=== PATIENT | male | born 2000 | race Caucasian/White ===

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

== ENCOUNTER 2022-09-10 11:03 | Emergency (ER) | payer BC, MEDICAID ==
[~2022-09-10] VITALS: Ht 185.5 cm; Wt 100.0 kg
[~2022-09-10 11:03] MED LIST changes: +PRD20T PO
--- NOTE | 2022-09-10 11:31 | ED General ---
General Chief Complaint: Dizziness/Syncope Stated Complaint: FALL | HEAD INJ | LIGHTHEADED | Nursing Triage Note: PT AMB TO ED BY POV WITH C/O SYNCOPE. PT REPORTS AROUND 0930 HE HAD A BM WHILE AT WORK, NOTICED A SMALL AMOUNT OF BRIGHT RED BLOOD ON STOOL AND TOILET PAPER. AFTER BM, PT BECAME DIZZY, DIAPHORETIC, LOST CONCIOUSNESS AND HIT HEAD WITNESSED BY COWORKERS. DENIES PAIN OR DIZZINESS AT THIS TIME. PT A&OX4. Source of Information: Patient Exam Limitations: No Limitations History of Present Illness Date Seen by Provider: Sep 10, 2022 Time Seen by Provider: 11:06 Initial Comments 22yoM with no pertinent PMH coming in after a syncopal episode and hitting his head. Had a bowel movement that had a small amount of blood streaking on the outside. He got lightheaded, stood up, and passed out. Denied chest pain, pal pitations, or any concerns prior to this. Has a mild headache at this time. Denies any history of GI bleed. Of note, he states he does get queasy and lightheaded when he sees blood which this is what occurred earlier. Allergies and Home Medications Allergies Coded Allergies: No Known Drug Allergies (Unverified , 11/25/15) Patient Home Medication List Home Medication List Reviewed: Yes Hydrocodone Bit/Acetaminophen (Lortab 5 Mg Tablet) 1 Each Tablet, 1 EACH PO Q4H Prescribed by: ARTI URIBE on 05/11/17 0004 Prednisone (Prednisone) 20 Mg Tab, 40 MG PO DAILY Prescribed by: MARY ASHER on 05/04/183 Review of Systems Review of Systems Constitutional: No fever EENTM: no symptoms reported Respiratory: no symptoms reported Cardiovascular: see HPI Gastrointestinal: see HPI Genitourinary: no symptoms reported Musculoskeletal: no symptoms reported Skin: no symptoms reported Psychiatric/Neurological: See HPI Hematologic/Lymphatic: No Symptoms Reported Past Awwsjnr-Kgdikq-Tfgttq Hx Patient Social History Tobacco Use?: No Use of E-Cig and/or Vaping dev: Yes E-Cig or Vaping type used: Nicotine Use of E-Cig and/or Vaping Esdras: Current Everyday User Substance use?: Yes Substance type: Marijuana Substance frequency: Daily Alcohol Use?: Yes Alcohol Frequency: Once in a while Pt feels they are or have been: No Immunizations Up To Date Influenza Vaccine Up-to-Date: No; Not Current Seasonal Allergies Seasonal Allergies: Yes Past Medical History Surgery/Hospitalization HX: DENIES Surgeries: No Respiratory: No Cardiac: No Neurological: No Reproductive Disorders: No Sexually Transmitted Disease: No Genitourinary: No Gastrointestinal: No Musculoskeletal: No Endocrine: No HEENT: No Cancer: No Psychosocial: No Integumentary: No Blood Disorders: No Physical Exam Vital Signs Vital Signs - First Documented 09/10/22 11:19 Pulse 86 Resp 16 B/P (MAP) 165/90 (115) Pulse Ox 98 O2 Delivery Room Air Capillary Refill : Less Than 3 Seconds Height, Weight, BMI Height: 6'1.00" Weight: 205lbs. oz. 92.338194ff; 29.00 BMI Method:Stated General Appearance: No Apparent Distress, WD/WN Eyes: Bilateral Eye Normal Inspection HEENT: PERRL/EOMI, Normal ENT Inspection, Pharynx Normal Neck: Full Range of Motion, Normal Inspection, Non Tender, Supple Respiratory: Chest Non Tender, Lungs Clear, Normal Breath Sounds, No Accessory Muscle Use, No Respiratory Distress Cardiovascular: Regular Rate, Rhythm, No Edema, Normal Peripheral Pulses Gastrointestinal: Normal Bowel Sounds, Non Tender, Soft; No Distended, No Guarding Rectal: Other (Offered rectal exam but patient deferred) Back: Normal Inspection, No CVA Tenderness Extremity: Normal Capillary Refill, Normal Inspection, Normal Range of Motion, Non Tender, No Calf Tenderness, No Pedal Edema Neurologic/Psychiatric: Alert, No Motor/Sensory Deficits, Normal Mood/Affect Skin: Normal Color, Warm/Dry Lymphatic: No Adenopathy Procedures/Interventions Suture Size: 6-0 Progress/Results/Core Measures Suspected Sepsis SIRS Temperature: Pulse: 86 Respiratory Rate: 16 Blood Pressure 165 /90 Mean: 115 Results/Orders Lab Results Laboratory Tests Test 09/10/22 12:05 Range/Units Glucometer 111 H 70-110 MG/DL My Orders Orders - LUMA GOMEZ MD Accucheck Stat ONCE (09/10/22 11:31) Ekg Tracing (09/10/22 11:31) Ct Head Wo (09/10/22 11:31) Vital Signs/I&O 09/10/22 11:19 Pulse 86 Resp 16 B/P (MAP) 165/90 (115) Pulse Ox 98 O2 Delivery Room Air Capillary Refill : Less Than 3 Seconds Blood Pressure Mean: 115 Progress Note : Progress Note 22-year-old male with above history coming in after what appears like a vasovagal syncopal episode clinically. ABCs were intact, GCS 15, vital stable on presentation. No red flags prior to the episode and he is not postictal afterwards making seizure very unlikely. He states he is very faint with blood, and he saw the very small amount of blood streaked on the end of his stool with a bunch of normal stool. Sounds like hemorrhoidal. I offered to do a rectal exam, but he deferred at this time. He is not tachycardic, normal capillary refill, his conjunctive are nice and pink, not clinically anemic. EKG with no acute ischemic changes on my interpretation, no delta wave, normal QTc. CT head with no acute findings. Glucose 111. He has no complaints at this time. I believe the patient is otherwise stable for discharge with outpatient follow-up. He was sent home with strict return precautions. ECG Initial ECG Impression Date: Sep 10, 2022 Initial ECG Impression Time: 11:58 Initial ECG Rate: 71 Initial ECG Rhythm: Normal Sinus Comment Narrow QRS, normal axis, no significant ST changes or T wave abnormalities Diagnostic Imaging Diagonstic Imaging: CT (head) Comments [facility]. [place], [place] NAME: SONYA YEUNG [facility] REC#: [id number] PT STATUS: REG ER : 2000 PHYSICIAN: LUMA GOMEZ MD ADMIT DATE: 09/10/22/ER Draft Date of Exam:09/10/22 CT HEAD WO INDICATION: syncope, head injury. TECHNIQUE: Routine non contrast-enhanced axial images were obtained from the skull base to the vertex. Auto Exposure Controls were utilized during the CT exam to meet ALARA standards for radiation dose reduction COMPARISON: None. FINDINGS: The ventricles and cortical sulci are normal in size and contour. There is no midline shift or mass-effect. No acute intra-axial hemorrhage is seen. There are no abnormal areas of increased or decreased density to suggest acute hemorrhage or edema. No extra-axial masses or collections are present. The bony calvarium is intact. The visualized paranasal sinuses are unremarkable. The mastoid air cells are clear. IMPRESSION: 1. No acute intracranial abnormality. No CT evidence of mass, acute infarct or intracranial hemorrhage. Dictated on workstation # [id number] Dict: 09/10/22 1156 Trans: 09/10/22 1201 [id number] [id number] Interpreted by: LUIS PARMAR MD Electronically signed by: Departure Impression Primary Impression: Syncope Qualified Codes: R55 - Syncope and collapse Disposition: 01 HOME, SELF-CARE Condition: Improved Departure-Patient Inst. Decision time for Depature: 12:13 Referrals: MOY JURADO DO (PCP/Family) Primary Care Physician Patient Instructions: Syncope (Fainting) (DC) Add. Discharge Instructions: This appears to be a vasovagal syncopal episode which just means passing out, likely from straining with a bowel movement or from seeing blood. We do not see any concerns based on her work-up today. The blood in your stool is likely from a hemorrhoid or an anal fissure. If you straining to have bowel movements, we can try stool softeners. Please follow-up with your regular doctor regarding this if this becomes an issue. Work/School Note: Family Work Note, Patient Received Medical Care In the Emergency Department On: Sep 10, 2022 Patient Will Be Able to Return to Work/School On: Sep 11, 2022 Work Release Form Date Seen in the Emergency Department: Sep 10, 2022 Return to Work: Sep 11, 2022 Restrictions: No Restrictions LUMA GOMEZ MD Sep 10, 2022 11:31
--- NOTE | 2022-09-10 12:01 | Diagnostic Imaging Report ---
INDICATION: syncope, head injury. TECHNIQUE: Routine non contrast-enhanced axial images were obtained from the skull base to the vertex. Auto Exposure Controls were utilized during the CT exam to meet ALARA standards for radiation dose reduction COMPARISON: None. FINDINGS: The ventricles and cortical sulci are normal in size and contour. There is no midline shift or mass-effect. No acute intra-axial hemorrhage is seen. There are no abnormal areas of increased or decreased density to suggest acute hemorrhage or edema. No extra-axial masses or collections are present. The bony calvarium is intact. The visualized paranasal sinuses are unremarkable. The mastoid air cells are clear. IMPRESSION: 1. No acute intracranial abnormality. No CT evidence of mass, acute infarct or intracranial hemorrhage. Dictated by: Dictated on workstation # [id number]
[2022-09-10 12:33] VITALS: BP 149/82
== END 2022-09-10 12:33 | disposition home or self-care (01) ==
LOC: EDUNIT# 11:03 → ER 11:07
DX: R55 Syncope and collapse (principal); K92.1 Melena; F17.290 Nicotine dependence, other tobacco product, uncomplicated; Z28.310 Unvaccinated for COVID-19
CPT/HCPCS: 70450; 82947; 93005